=== PATIENT | female | born 1955 | race Caucasian/White ===

== ENCOUNTER 2016-12-14 15:22 | Emergency (ER) | payer OTHER ==
[~2016-12-14] VITALS: Ht 154.9 cm; Wt 83.3 kg
[~2016-12-14 15:22] MED LIST: ACTOS30 MG PO; ALEVE220 MG PO; ARTIFICIAL TEAR1510 BOTH EYES; ASPERCREME 1035.4 GM TP; ASPERDRINK81 MG PO; ASPIR 8181 M1 PO; ASPIR-LOW81 MG PO; CIPRO500 MG PO; CYCLOBENZAPRINE10 MG PO; DILTIAZEM 24HR120 MG PO; DOC-Q-LACE100 MG PO; ENDOCET 5-3251 EACH PO; EXCEDRIN MIGRA1 EAC3 PO; Feosol PO; GLUCOPHAGE1000 MG PO; GLUCOPHAGE500 MG PO; HCTZ PO; HYDROCHLOROTHIA25 MG PO; HYDROCHLOROTHIA50 MG PO; IRON18 MG PO; IRON325 M1 PO; LANTUS 10100 UNITS/ SC; LANTUS 3 M100 UNITS1 SC; LEVEMIR100 UNIT/2 SQ; LIDODERM 5% P1 PATCH TD; LISINOPRIL40 MG PO; LYRICA100 MG PO; LYRICA75 MG PO; METFORMIN HCL1000 MG PO; METFORMIN HCL500 MG PO; METOPROLOL TART25 MG PO; OMEPRAZOLE20 MG PO; OMEPRAZOLE40 M1 PO; OMEPRAZOLE40 MG PO; PERCOCET 5-3251 EACH PO; PERCOCET 5/31 TABLET PO; PRAVACHOL40 MG PO; PRAVASTATIN SOD20 MG PO; PRAVASTATIN SOD40 MG PO; PREVACID15 MG PO; PRILOSEC40 MG PO; PROAIR HFA8.5 GM IH; Percocet 5/325,Endoc PO; PriLOSEC PO; SALONPAS PAIN TP; SENOKOT,SENN1 TABLET PO; SERTRALINE HCL100 MG PO; SIMVASTATIN PO; SIMVASTATIN40 M1 PO; SYMBICORT60 INHALAT IH; TAZTIA XT120 M1 PO; VITAMIN D400 UNI1 PO; XANAX0.5 MG PO; Xanax PO; ZANTAC150 MG PO; ZANTAC300 MG PO; ZESTRIL,PRINIVI20 MG PO; ZOLOFT100 MG PO; ZOLOFT50 MG PO; Zocor PO
[2016-12-14 16:21] VITALS: BP 144/74
== END 2016-12-14 17:57 | disposition home or self-care (01) ==
LOC: EXP 15:22 → EME 15:22 → EXP 17:57
PROC: 2W3DX1Z Immobilization of Left Lower Arm using Splint (ICD-10-PCS; principal; 2016-12-14)
DX: S63.502A Unspecified sprain of left wrist, initial encounter (principal); S40.012A Contusion of left shoulder, initial encounter; W18.30XA Fall on same level, unspecified, initial encounter; Y92.480 Sidewalk as the place of occurrence of the external cause; Z88.6 Allergy status to analgesic agent
CPT/HCPCS: 73030; 73110

== ENCOUNTER → 2018-07-01 | Outpatient (CLI) | payer OTHER, BC | END | disposition home or self-care (01) | DX: Z01.818 Encounter for other preprocedural examination (principal); M17.12 Unilateral primary osteoarthritis, left knee; R26.2 Difficulty in walking, not elsewhere classified; M25.562 Pain in left knee; M25.662 Stiffness of left knee, not elsewhere classified; Z74.1 Need for assistance with personal care | CPT/HCPCS: 97161 GP; 97165 GO; 97530 GP; 97535 GO; G8978 GP; G8979 GP; G8980 GP; G8987 GO; G8988 GO; G8989 GO ==